=== PATIENT | male | born 1960 | race Caucasian/White ===

== ENCOUNTER 2017-11-08 12:44 | Outpatient (CLI) | payer OTHER | END 2017-11-08 12:45 | disposition home or self-care (01) | LOC: DTY/OP 12:44 | PROVIDERS: ATTEND Surgery | DX: E66.01 Morbid (severe) obesity due to excess calories (principal) | CPT/HCPCS: 97802 ==

== ENCOUNTER 2017-11-29 15:15 | Inpatient (IN) | payer BC ==
[2017-11-29 15:39] VITALS: BMI 54.8
[2017-12-02] MEDS ORDERED: CEFAZOLIN/Water 2 GM/20 ML SYRINGE ONE (07:55)
[2017-12-02] MEDS ORDERED: Heparin 5,000 UNITS/ML VIAL ONE (07:55)
[2017-12-02] MEDS ORDERED: Bupivacaine/Epinephrine 0.25% 30 ML VIAL ONE (09:28)
[2017-12-02] MEDS ORDERED: Midazolam HCl 2 mg/2 ml Vial ONE ×2 (09:45→09:47)
[2017-12-02] MEDS ORDERED: Lidocaine 1% (PF) 30 ML VIAL ONE (09:48)
[2017-12-02] MEDS ORDERED: Fentanyl 100 MCG/2 ML VIAL ONE (09:48)
[2017-12-02] MEDS ORDERED: HYDROmorphone 2 MG/ML VIAL ONE (09:48)
[2017-12-02] MEDS ORDERED: Meperidine HCl/PF 25 MG/ML VIAL SLOW IVP PRN (09:51)
[2017-12-02] MEDS ORDERED: Ondansetron HCl/PF 4 MG/2 ML Vial IVP PRN ×3 (09:51→11:19)
[2017-12-02] MEDS ORDERED: diphenhydrAMINE 50 MG/ML VIAL IVP PRN ×2 (09:51→11:19)
[2017-12-02] MEDS ORDERED: Zolpidem Tartrate 5 MG TAB PO PRN (09:51)
[2017-12-02] MEDS ORDERED: HYDROmorphone 10 mg/100 ml CADD IVPB PRN (09:51)
[2017-12-02] MEDS ORDERED: HYDROmorphone 2 MG/ML VIAL SLOW IVP PRN (09:51)
[2017-12-02] MEDS ORDERED: diphenhydrAMINE 50 MG/ML VIAL IM PRN (09:51)
[2017-12-02] MEDS ORDERED: diphenhydrAMINE 25 MG CAP PO PRN (09:51)
[2017-12-02] MEDS ORDERED: Naloxone HCl 0.4 mg/ml Vial IV PRN (09:51)
[2017-12-02] MEDS ORDERED: Promethazine HCl 25 MG/ML VIAL IM PRN ×3 (09:51→11:19)
[2017-12-02] MEDS ORDERED: Promethazine HCl 25 MG/ML VIAL SLOW IVP PRN (09:51)
[2017-12-02] MEDS ORDERED: Communication Order-Pharmacy FS SCH (10:00)
[2017-12-02] MEDS ORDERED: Dextrose 50% Abboject 50 ML SYRINGE SLOW IVP PRN (11:19)
[2017-12-02] MEDS ORDERED: Dextrose 5% in Water 1,000 ML IV PRN (11:19)
[2017-12-02] MEDS ORDERED: hydrALAZINE 20 MG/ML VIAL SLOW IVP PRN (11:19)
--- NOTE | 2017-12-02 12:35 | OP ---
DATE OF PROCEDURE: 12/02/2017 PREOPERATIVE DIAGNOSIS: Morbid obesity. SURGEON: Wicho Rizo M.D. PROCEDURES PERFORMED: Laparoscopic sleeve gastrectomy, esophagogastroscopy. INDICATIONS: This is a 57-year-old male who is morbidly obese, who has attempted multiple weight los s programs without success. FINDINGS: A 38 [place] bougie used. PROCEDURE IN DETAIL: After informed consent was obtained, the patient was taken to the operating gm m and given general endotracheal anesthesia. He was placed in the supine position. The abdomen was prepped and draped in usual fashion. Local anesthesia infiltrated subcutaneously and deep. A 12 mm incision was performed approximately 8 inches below xiphoid slightly to the left. Veress needle inse rted. Drop test performed. Pneumoperitoneum was created to a volume of 2 liters of carbon dioxide. Utilizing a bladeless 12 mm trocar and 0 degree laparoscope, direct visual entry into the abdominal cavity was performed. Pneumoperitoneum was created to a pressure of 15 mmHg. The patient placed in the steep reverse Trendelenburg position. Nathansen liver retractor inserted. Left lobe of liver re tracted superiorly. The pylorus was identified and a 12 mm port placed on the right beneath it and t wo 12s placed left subcostal. The omentum was taken off the greater curvature 5 cm from the pylorus utilizing the LigaSure. Short gastrics divided with LigaSure and the left crura defined with the Lig aSure. A 38-[place]cu[place]orean bougie inserted directed into the antrum. The linear 60 mm green load stapler us ed to divide the antrum to the bougie, gold load along the bougie, and a series of blues through the angle of His. Intraoperative endoscopy was performed. The video endoscope inserted under direct vis ion and advanced into the sleeve. The staple line inspected. There was no bleeding. Staple line th en tested by inflating the new stomach with pressurized air under water. There was no air leak. Sto mach decompressed. Scope removed. The remnant stomach removed from the abdomen through the left lat eral port site. The fascia was closed with 0 Vicryl suture and the GraNee needle. Trocars and retra ctors removed. The skin closed with interrupted 4-0 Rapide. Steri-Strips applied. Sterile bandages applied. Patient tolerated the procedure well and was transferred to recovery in good condition. S ponge and needle count verified correct x2.
[2017-12-02] MEDS: D5 1/2 NS w/20 mEq KCL 1,000 ML IV SCH ×2 (13:08→21:42)
[2017-12-02] MEDS: Ketorolac Tromethamine 30 MG/ML VIAL IVP SCH ×2 (13:10→17:24)
[2017-12-02] MEDS: Acetaminophen 1,000 MG in Premix Bag 1 BAG IVPB SCH ×2 (13:10→17:24)
[2017-12-02] MEDS: CEFAZOLIN/Water 2 GM/20 ML SYRINGE SLOW IVP SCH (16:11)
[2017-12-03] MEDS: Ketorolac Tromethamine 30 MG/ML VIAL IVP SCH ×2 (00:42→05:12)
[2017-12-03] MEDS: CEFAZOLIN/Water 2 GM/20 ML SYRINGE SLOW IVP SCH (00:42)
[2017-12-03] MEDS: Acetaminophen 1,000 MG in Premix Bag 1 BAG IVPB SCH ×2 (00:42→05:11)
[2017-12-03] MEDS: D5 1/2 NS w/20 mEq KCL 1,000 ML IV SCH (05:16)
[2017-12-03 05:39] LABS: #Lymphocytes 1.1 thou/uL (1.20-3.40); #Neutrophils 13.3 thou/uL (1.40-6.50); %Basophils 0.1 % (0.0-1.0); %Monocytes 6.4 % (0.0-10.0); %Neutrophils 86.5 % (42.0-75.0); Hemoglobin 12.8 g/dL (14.0-18.0); Mean Corpuscular HGB CONC 33.4 g/dL (32.0-36.0); Mean Corpuscular Hemoglobin 29.3 pg (27.0-31.0); Mean Corpuscular Volume 87.6 fL (78.0-98.0); Mean Platelet Volume 9.3 fL (7.4-10.4); Platelet Count 266 thou/uL (130-400); RBC Distribution Width 12.4 % (11.5-14.5); Red Blood Cell (RBC) Count 4.39 mill/uL (4.70-6.10); White Blood Cell (WBC) Count 15.3 thou/uL (4.8-10.8)
[2017-12-03 05:43] LABS: Anion Gap 12 mmol/L (10-20); BUN (Urea Nitrogen) 13 mg/dL (8.4-25.7); Calc. Creatinine Clearance 199 mL/min (70-130); Calcium 8.9 mg/dL (7.8-10.44); Carbon Dioxide 23 mmol/L (22-29); Chloride 106 mmol/L (98-107); Estimated GFR-MDRD 73; Glucose 124 mg/dL (70-105); Sodium 136 mmol/L (136-145)
[2017-12-03] MEDS ORDERED: Pantoprazole 40 MG VIAL IVP SCH (09:00)
[2017-12-03] MEDS ORDERED: Enoxaparin Sodium 40 MG/0.4 ML SYRINGE SC SCH (09:00)
[2017-12-03] MEDS ORDERED: Hydrocodone-Acetamin 15 ML UDCUP PO PRN (11:30)
[2017-12-03 11:35] VITALS: BP 150/86; TEMP 97.6
--- NOTE | 2017-12-03 15:12 | RAD ---
XRAY BARIUM SWALLOW ESOPHAGRAM: HISTORY: Lap gastric sleeve. COMPARISON: None. FINDINGS: The patient was given 15 mL of Gastrografin. The patient tolerated this well. Contrast transits thr ough the esophagus to the stomach without complication. There is a focal outpouching of the gastric antrum without evidence of a leak. This is at the distal end of the gastric sleeve. IMPRESSION: Focal outpouching along the greater curvature of the stomach near the distal end of the gastric sleev e near surgical clips without evidence of leak. POS: BRANDON
--- NOTE | 2017-12-03 19:20 | DIS ---
DISCHARGE DIAGNOSIS: Morbid obesity. PROCEDURES DURING ADMISSION: Laparoscopic sleeve gastrectomy, intraoperative esophagogastroscopy, po stoperative Gastrografin swallow. HOSPITAL COURSE: The patient was admitted, taken to the operating room where he underwent sleeve gas trectomy. Postoperatively, he has done well. Swallow was fine. He is tolerating liquids well. His pain is controlled on p.o. meds. Discharged home on hydrocodone, Zofran, and follow up with me in 2 weeks.
== END 2017-12-03 14:05 | disposition home or self-care (01) | DRG 621 ==
LOC: SURG A 12-02 07:39 → SJJU 12-02 11:58
PROVIDERS: ADMIT Surgery; ATTEND Surgery
PROC: 0DB64Z3 Excision of Stomach, Percutaneous Endoscopic Approach, Vertical (ICD-10-PCS; principal; 2017-12-02)
DX: E66.01 Morbid (severe) obesity due to excess calories (principal); Z68.43 Body mass index [BMI] 50.0-59.9, adult; I10 Essential (primary) hypertension
CPT/HCPCS: 36415; 74220; 80048; 85025; 88307; 88312; 94760; C9113; J0131; J1170; J1644; J1650; J1885; J2001; J2250; J3010

== ENCOUNTER 2017-11-29 15:26 | Outpatient (CLI) | payer BC ==
--- NOTE | 2017-11-29 16:49 | RAD ---
CHEST TWO VIEWS: HISTORY: Preop. COMPARISON: Chest radiograph from 2004. FINDINGS: The right lung base shows a well defined nodule of the anterior right sixth rib. No other pulmonary nodules appreciated. Minimal spondylosis of the thoracic spine. IMPRESSION: Well defined nodule, right anterior sixth rib. This likely reflects a calcified granuloma, given its appearance over the rib. Followup can be obtained. POS: BRANDON
[2017-11-29 17:05] LABS: #Basophils 0.1 thou/uL (0.0-0.2); #Eosinphils 0.1 thou/uL (0.0-0.7); #Lymphocytes 2.7 thou/uL (1.20-3.40); #Monocytes 0.9 thou/uL (0.11-0.59); #Neutrophils 7.1 thou/uL (1.40-6.50); %Basophils 0.8 % (0.0-1.0); %Eosinophils 1.1 % (0.0-10.0); %Lymphocytes 24.6 % (21.0-51.0); %Monocytes 8.6 % (0.0-10.0); Hemoglobin 14.6 g/dL (14.0-18.0); Mean Corpuscular HGB CONC 34.3 g/dL (32.0-36.0); Mean Corpuscular Hemoglobin 29.8 pg (27.0-31.0); Mean Platelet Volume 8.7 fL (7.4-10.4); Platelet Count 309 thou/uL (130-400); RBC Distribution Width 12.4 % (11.5-14.5); Red Blood Cell (RBC) Count 4.91 mill/uL (4.70-6.10)
[2017-11-29 17:27] LABS: ALT (SGPT) 19 U/L (8-55); AST (SGOT) 20 U/L (5-34); Albumin 4.6 g/dL (3.5-5.0); Alkaline Phosphatase 98 U/L (40-150); Anion Gap 17 mmol/L (10-20); BUN (Urea Nitrogen) 24 mg/dL (8.4-25.7); Bilirubin, Direct 0.2 mg/dL (0.1-0.3); Bilirubin, Total 0.6 mg/dL (0.2-1.2); Calc. Creatinine Clearance 0 mL/min (70-130); Calcium 9.9 mg/dL (7.8-10.44); Carbon Dioxide 21 mmol/L (22-29); Chloride 104 mmol/L (98-107); Estimated GFR-MDRD 60; Glucose 87 mg/dL (70-105); Potassium 4.9 mmol/L (3.5-5.1); Protein, Total 7.6 g/dL (6.0-8.3); Sodium 137 mmol/L (136-145)
== END 2017-11-29 15:27 | disposition home or self-care (01) ==
LOC: LABBT 15:26
PROVIDERS: ATTEND Surgery
DX: Z01.818 Encounter for other preprocedural examination (principal); E66.01 Morbid (severe) obesity due to excess calories; R91.1 Solitary pulmonary nodule
CPT/HCPCS: 71046; 80053; 80076; 83036; 85025; 93005; 93010